=== PATIENT | male | born 1945 | race Caucasian/White ===

== ENCOUNTER 2016-05-27 14:35 | Inpatient (IN) | payer MEDICARE, MEDICAID ==
[~2016-05-27] VITALS: Ht 170.2 cm; Wt 55.1 kg
--- NOTE | ~2016-05-27 | CON ---
[place], [place] REPORT OF CONSULTATION NAME: RODRIGO VELA [facility] #: [id number] UNIT #: [id number] ROOM: 407 DOCTOR: LISSETTE WELLINGTON MD BIRTHDATE: [birth year] DOS: 05/28/2016 REASON FOR CONSULTATION: Elevated troponin. HISTORY OF PRESENT ILLNESS: The patient is a 70-year-old man who was not previously seen by [facility]. He has been followed by the line repairer tower of [facility], although the patient is unsure of his line repairer tower's name. He tells me that he had a history of a myocardial infarction in the distant past and had an angioplasty and stent done. He does not know which vessel was involved. He was well until about 4-5 years ago when he had another myocardial infarction. He states that he did have an irregular heartbeat and a defibrillator was placed. He does not believe that he had a second stent. 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 He was placed on amiodarone and his ICD was adjusted. Again, those records are not yet available to me. He was told that there was "nothing more to be done" and has been maintained on medical therapy. The patient was doing reasonably well until about 5 days ago when he developed chills, dyspnea, congestion, weakness and severe diarrhea. He thought he might have pneumonia and spent a lot of time in bed. Family says that he got out of bed for no more than an hour daily for about a week. His oral intake decreased, and his diarrhea increased. He became dehydrated and fell striking his head, so he was brought to the Emergency Room. He was rehydrated and a CT scan of his head showed no evidence for intracranial damage. The chest x-ray suggested the possibility of an interstitial infiltrate, and he was admitted. Since hospitalization, laboratory studies have shown an elevation in CPK with a peak of 810. The MB, however, was low. Troponin levels are mildly elevated at 0.040, 0.047 and 0.059. Because of this elevation, we were asked to assist in his assessment. Currently, the patient feels well. He is being rehydrated with IV fluids and states that his symptoms have improved. He denies any chest pain, palpitations or ICD discharges. PAST MEDICAL HISTORY: Includes; 1. Coronary artery disease. The patient had a remote heart attack with placement of a stent in the distant past. He had a more recent heart attack with a placement of a defibrillator about 4-5 years ago. 2. Multiple ICD discharges approximately 4 years ago. The patient treated with amiodarone. 3. Long-term and ongoing cigarette abuse. 4. Obstructive lung disease. 5. Long-term and ongoing alcohol abuse. 6. Hyperlipidemia. MEDICATIONS: Prior to admission, amiodarone 200 mg daily, aspirin 81 mg per day, carvedilol 25 mg b.i.d., clopidogrel 75 mg daily, Vibramycin 100 mg b.i.d., folic acid daily, lisinopril 5 mg per day, Zantac daily, rosuvastatin 20 mg daily, sertraline 50 mg daily, and temazepam 30 mg at bedtime. [place], [place] REPORT OF CONSULTATION NAME: RODRIGO VELA UNIT #: [id number] ROOM: 407 DOCTOR: LISSETTE WELLINGTON MD BIRTHDATE: [birth year] ALLERGIES: The patient has no known drug allergies. FAMILY HISTORY: Both parents of heart disease in their 70s. REVIEW OF SYSTEMS: The patient denies diplopia or loss of vision. He has been weak. He has had diarrhea. He has had cough and congestion. He denies hemoptysis or hematemesis. He has had anorexia. He denies any chills or fevers. He denies any bleeding in his bowels or urine. He denies any peripheral edema, orthopnea or PND. He denies heat or cold intolerance. The remainder of the review of systems is negative except as noted above. SOCIAL HISTORY: The patient is an alcoholic and continues to smoke and drink daily. PHYSICAL EXAMINATION: GENERAL: The patient is an elderly white male who is awake, alert and oriented. VITAL SIGNS: Pulse is 64 and regular, blood pressure is 119/59. He is afebrile. He weighs 54.9 kilograms with a body mass index of 19. HEENT: Normocephalic, atraumatic. Extraocular muscles are intact. Sclerae are clear. Pupils are round and reactive to light. The oral mucosa is moist. Tongue is midline. NECK: Supple. He has no jugular distention. Carotids are full without bruits. He has no neck or supraclavicular masses. No thyromegaly. LUNGS: Respirations are unlabored. His chest has decreased breath sounds at the bases, but no wheezes or rales. He has no presacral edema or chest wall tenderness. CARDIOVASCULAR: His heart has a regular rhythm. He has a fourth heart sound, but no third heart sound or obvious murmur. The PMI is not displaced. He has no precordial heave, lift or thrill. ABDOMEN: Soft and normoactive without masses, organomegaly, bruits or tenderness. EXTREMITIES: Showed no edema. Peripheral pulses are absent in his feet bilaterally. LABORATORY DATA: Electrocardiogram is not currently available. His monitor shows that he is in sinus rhythm. Hemoglobin is 11.1, hematocrit 33.6, white count 7600, platelet count 85,000. INR is 0.9. Sodium 137, potassium 3.2, chloride 105, CO2 of 21, BUN 17, creatinine 1.14. Peak CPK 810, but peak MB is only 3.1. Troponin levels are mildly elevated at 0.040, 0.047 and 0.059. ProBNP is 1145. IMPRESSION: 1. Presentation with possible viral illness. The patient's presentation was marked by dehydration, anorexia, diarrhea, and hypotension. In the setting of coronary artery disease, this might be enough to allow for a slight amount of myocardial injury an elevation in troponin without an acute coronary syndrome. 2. History of coronary artery disease status post at least 2 myocardial infarctions in the past, records are not yet available. 3. History of apparent ventricular tachycardia. The patient does have an ICD [place], [place] REPORT OF CONSULTATION NAME: RODRIGO VELA UNIT #: [id number] ROOM: 407 DOCTOR: LISSETTE WELLINGTON MD BIRTHDATE: [address], which he states has been there for about 4 years. 4. 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 The patient is on amiodarone for this. 5. Long-term and ongoing tobacco abuse. 6. Long-term and ongoing alcohol abuse. 7. Hyperlipidemia. PLAN: We will obtain an echocardiogram to reassess the patient's left ventricular function and wall motion. Records will be obtained from his line repairer tower in [place] to help determine how aggressively we should approach his further evaluation. For now, he will be treated with aspirin, Plavix, MIR inhibitors and amiodarone. I also did add a low dose of beta lucio to his regimen. Further recommendations depend upon his course in the hospital, echocardiographic results, and review of history. I thank the hospitalist physicians for asking our advice regarding his care. LISSETTE WELLINGTON MD CM:CONSTR:REPORT OF CONSULTATION [id number] 05/29/16 [id number] interface
[~2016-05-27 14:35] MED LIST: 'CYPROHEPTADINE4 MG PO; ASPI-COR81 M1 PO; BISACODYL LAXATI5 MG PO; COREG25 MG PO; COREG3.125 MG PO; FOLIC ACID1 MG PO; LISINOPRIL5 MG PO; PLAVIX75 MG PO; ULTRAM50 MG PO; ZANTAC150 MG PO
[2016-05-27 14:43] VITALS: BP 122/56
[2016-05-27] MEDS ORDERED: AMIODARONE HCL200 MG PO (14:43)
[2016-05-27] MEDS ORDERED: ASPIRIN81 M1 PO (14:44)
[2016-05-27] MEDS ORDERED: TEMAZEPAM30 MG PO (14:44)
[2016-05-27] MEDS ORDERED: ZOLOFT50 MG PO (14:45)
[2016-05-27] MEDS ORDERED: CRESTOR20 M1 PO (14:45)
[2016-05-27 15:39] LABS: BASO % 0.3 % (0.0-1.0); EOS % 0.3 % (1.0-4.0); HEMATOCRIT 38.5 % (42.0-52.0); HEMOGLOBIN 12.6 g/dl (14.0-18.0); LYMPH % 13.4 % (27.0-41.0); MEAN CELL VOLUME 92.1 fl (80.0-94.0); MEAN CORPUSCULAR HGB 30.1 pg (27.0-31.0); MEAN CORPUSCULAR HGB CONC 32.7 g/dl (33.0-37.0); MEAN PLATELET VOLUME 13.1 fl (9.6-12.3); MONO # 0.7 10*3/uL (0.1-1.0); MONO % 9.1 % (3.0-9.0); NEUT # 5.6 10*3/uL (2.3-7.9); NEUT % 76.5 % (47.0-73.0); PLATELET COUNT AUTOMATED 105 10*3/uL (130-400); RED BLOOD COUNT 4.18 10*6/uL (4.50-5.90); RED CELL DISTRI WIDTH 14.7 % (0-14.5); WHITE BLOOD COUNT 7.3 10*3/uL (4.8-10.8)
[2016-05-27 15:57] LABS: ALKALINE PHOSPHATASE 107 U/L (45-117); BILIRUBIN, TOTAL 0.4 mg/dl (0.2-1.0); BUN 22 mg/dl (7-24); CARBON DIOXIDE 21 mmol/L (21-32); CHLORIDE 104 mmol/L (98-107); EST GLOM FILT AFRICAN AMERICAN > 60 ml/min; GLUCOSE 76 mg/dL (65-99); POTASSIUM 3.9 mmol/L (3.5-5.1); SGOT/AST 49 IU/L (3-35); SGPT/ALT 24 U/L (12-78); SODIUM 136 mmol/L (136-145); TOTAL PROTEIN 7.8 gm/dL (6.4-8.2)
[2016-05-27 16:00] VITALS: BP 119/64
[2016-05-27 16:46] LABS: TROPONIN I < 0.015 ng/ml (<0.045)
[2016-05-27 16:50] LABS: BILIRUBIN NEGATIVE (NEGATIVE); BLOOD 2+ (NEGATIVE); CLARITY SL CLOUDY (CLEAR); COLOR YELLOW (YELLOW); GLUCOSE NEGATIVE (NEGATIVE); KETONE NEGATIVE (NEGATIVE); LEUKO ESTERASE NEGATIVE (NEGATIVE); NITRITE NEGATIVE (NEGATIVE); PROTEIN 2+ (NEGATIVE); SPECIFIC GRAVITY >= 1.030 (1.005-1.030); UROBILINOGEN 0.2 E.U./dl (0.2-1.0)
[2016-05-27 17:00] LABS: MUCOUS 1+; URINE REFLEX COMMENT YES (NO)
[2016-05-27] MEDS ORDERED: VIBRAMYCIN100 MG PO (17:37)
[2016-05-27 22:15] VITALS: BP 81/48
[2016-05-27 22:55] VITALS: BP 81/56
[2016-05-27 23:09] LABS: ALBUMIN 2.8 gm/dl (3.1-4.5); ALKALINE PHOSPHATASE 96 U/L (45-117); BILIRUBIN, TOTAL 0.6 mg/dl (0.2-1.0); BUN 21 mg/dl (7-24); CARBON DIOXIDE 21 mmol/L (21-32); CHLORIDE 104 mmol/L (98-107); EST GLOM FILT AFRICAN AMERICAN > 60 ml/min; GLUCOSE 92 mg/dL (65-99); MAGNESIUM 2.2 mg/dL (1.5-2.1); POTASSIUM 3.5 mmol/L (3.5-5.1); SGOT/AST 45 IU/L (3-35); SGPT/ALT 22 U/L (12-78); SODIUM 136 mmol/L (136-145); TOTAL PROTEIN 7.3 gm/dL (6.4-8.2)
[2016-05-28] VITALS: BP 92/60
[2016-05-28 00:42] LABS: CKMB 1.7 ng/ml (0.5-3.6); TROPONIN I 0.04 ng/ml (<0.045)
[2016-05-28 06:46] LABS: HEMATOCRIT 33.6 % (42.0-52.0); HEMOGLOBIN 11.1 g/dl (14.0-18.0); MEAN CELL VOLUME 89.8 fl (80.0-94.0); MEAN CORPUSCULAR HGB 29.7 pg (27.0-31.0); MEAN PLATELET VOLUME 12.8 fl (9.6-12.3); PLATELET COUNT AUTOMATED 85 10*3/uL (130-400); RED BLOOD COUNT 3.74 10*6/uL (4.50-5.90); RED CELL DISTRI WIDTH 14.7 % (0-14.5); WHITE BLOOD COUNT 7.6 10*3/uL (4.8-10.8)
[2016-05-28 07:13] LABS: TROPONIN I 0.047 ng/ml (<0.045)
[2016-05-28 07:22] LABS: INTERNATIONAL NORM RATIO 0.9 (2.0-3.5)
[2016-05-28 07:29] LABS: BUN 17 mg/dl (7-24); CARBON DIOXIDE 21 mmol/L (21-32); CHLORIDE 105 mmol/L (98-107); CHOLESTEROL 77 mg/dL (<200); EST GLOM FILT AFRICAN AMERICAN > 60 ml/min; GLUCOSE 87 mg/dL (65-99); HDL CHOLESTEROL 30 mg/dl (40-60); LDL CHOLESTEROL 26 mg/dL (9-159); POTASSIUM 3.2 mmol/L (3.5-5.1); SODIUM 137 mmol/L (136-145); TRIGLYCERIDES 107 mg/dl (<150); VLDL CHOLESTEROL 21 mg/dL (6-40)
[2016-05-28 07:38] LABS: FREE T4 1.41 ng/dl (0.76-1.46); THYROID STIM HORMONE (HS) 0.683 uIU/ml (0.358-4.75)
[2016-05-28 07:40] LABS: VITAMIN D, 25-HYDROXY 8.3 ng/mL (30-100)
[2016-05-28 07:41] LABS: FOLIC ACID > 24.00 ng/mL (>5.38)
[2016-05-28 07:54] LABS: LYMPHOCYTE # 0.9 10*3/uL (1.3-4.4); METAMYELOCYTES 1 % (0-0); MONOCYTE # 0.8 10*3/uL (0.1-1.0); NEUTROPHIL # 5.9 10*3/uL (2.3-7.9); NEUTROPHILS 77 % (47-73); PLATELET SUFFICIENCY LOW (NORMAL); TOTAL CELLS COUNTED 100 #CELLS; TOXIC GRANULATION MODERATE
[2016-05-28 08:00] VITALS: BP 95/53
[2016-05-28 12:00] VITALS: BP 119/59
[2016-05-28 12:31] LABS: CKMB 3.1 ng/ml (0.5-3.6)
[2016-05-28 12:41] LABS: TROPONIN I 0.059 ng/ml (<0.045)
[2016-05-28 16:00] VITALS: BP 93/57
[2016-05-28 20:00] VITALS: BP 91/49
[2016-05-29] VITALS: BP 101/55
[2016-05-29 06:39] LABS: HEMOGLOBIN 11.2 g/dl (14.0-18.0); MEAN CELL VOLUME 90.7 fl (80.0-94.0); MEAN CORPUSCULAR HGB 29.9 pg (27.0-31.0); MEAN CORPUSCULAR HGB CONC 32.9 g/dl (33.0-37.0); MEAN PLATELET VOLUME 12.9 fl (9.6-12.3); PLATELET COUNT AUTOMATED 77 10*3/uL (130-400); RED BLOOD COUNT 3.75 10*6/uL (4.50-5.90); RED CELL DISTRI WIDTH 14.6 % (0-14.5); WHITE BLOOD COUNT 9.1 10*3/uL (4.8-10.8)
[2016-05-29 07:09] LABS: BASOPHIL # 0.1 10*3/uL (0-0.1); BASOPHILS 1 % (0-1); BUN 11 mg/dl (7-24); BURR CELLS FEW; CARBON DIOXIDE 19 mmol/L (21-32); CHLORIDE 110 mmol/L (98-107); EST GLOM FILT AFRICAN AMERICAN > 60 ml/min; GLUCOSE 114 mg/dL (65-99); LYMPHOCYTE # 0.4 10*3/uL (1.3-4.4); MAGNESIUM 2.2 mg/dL (1.5-2.1); MONOCYTE # 0.3 10*3/uL (0.1-1.0); NEUTROPHIL # 8.4 10*3/uL (2.3-7.9); NEUTROPHILS 92 % (47-73); PHOSPHOROUS 2.2 mg/dL (2.5-4.9); PLATELET SUFFICIENCY LOW (NORMAL); POTASSIUM 4.1 mmol/L (3.5-5.1); SODIUM 140 mmol/L (136-145); TOTAL CELLS COUNTED 100 #CELLS
[2016-05-29 08:00] VITALS: BP 119/64
[2016-05-29] MEDS ORDERED: PREDNISONE10 MG PO (09:07)
[2016-05-29] MEDS ORDERED: DOXYCYCLINE100 M3 PO (09:07)
== END 2016-05-29 09:50 | disposition home or self-care (01) | DRG 314 ==
LOC: ED 14:35 → 4E 22:28 → EDHOLD 22:28 → 4E 22:37
PROVIDERS: Emergency Medicine; Family Medicine Sports Medicine; Internal Medicine
DX: I95.9 Hypotension, unspecified (principal); E43 Unspecified severe protein-calorie malnutrition; I50.9 Heart failure, unspecified; D69.6 Thrombocytopenia, unspecified; J44.0 Chronic obstructive pulmonary disease with (acute) lower respiratory infection; D64.9 Anemia, unspecified; E83.41 Hypermagnesemia; Z68.1 Body mass index [BMI] 19.9 or less, adult; K52.9 Noninfective gastroenteritis and colitis, unspecified; J20.9 Acute bronchitis, unspecified; E86.0 Dehydration; I25.10 Atherosclerotic heart disease of native coronary artery without angina pectoris; E78.5 Hyperlipidemia, unspecified; F10.20 Alcohol dependence, uncomplicated; I25.2 Old myocardial infarction; E87.6 Hypokalemia; Z95.5 Presence of coronary angioplasty implant and graft; Z95.810 Presence of automatic (implantable) cardiac defibrillator

== ENCOUNTER 2017-03-05 17:59 | Emergency (ER) | payer MEDICARE, MEDICAID ==
[~2017-03-05] VITALS: Ht 170.1 cm; Wt 54.4 kg
[~2017-03-05 17:59] MED LIST changes: +AMIODARONE HCL200 MG PO; +ASPIRIN81 M1 PO; +CRESTOR20 M1 PO; +DOXYCYCLINE100 M3 PO; +PREDNISONE10 MG PO; +TEMAZEPAM30 MG PO; +VIBRAMYCIN100 MG PO; +ZOLOFT50 MG PO
[2017-03-05 18:57] LABS: BASO # 0.1 10*3/uL (0.0-0.1); BASO % 0.5 % (0.0-1.0); EOS # 0.1 10*3/uL (0.0-0.4); EOS % 0.5 % (1.0-4.0); HEMATOCRIT 30.1 % (42.0-52.0); HEMOGLOBIN 9.4 g/dl (14.0-18.0); LYMPH # 1.2 10*3/uL (1.3-4.4); LYMPH % 11.4 % (27.0-41.0); MEAN CELL VOLUME 82.7 fl (80.0-94.0); MEAN CORPUSCULAR HGB 25.8 pg (27.0-31.0); MEAN CORPUSCULAR HGB CONC 31.2 g/dl (33.0-37.0); MEAN PLATELET VOLUME 13.2 fl (9.6-12.3); MONO # 0.7 10*3/uL (0.1-1.0); MONO % 6.5 % (3.0-9.0); NEUT # 8.4 10*3/uL (2.3-7.9); NEUT % 80.7 % (47.0-73.0); PLATELET COUNT AUTOMATED 159 10*3/uL (130-400); RED BLOOD COUNT 3.64 10*6/uL (4.50-5.90); RED CELL DISTRI WIDTH 16.8 % (0-14.5); WHITE BLOOD COUNT 10.4 10*3/uL (4.8-10.8)
[2017-03-05 19:16] LABS: ALBUMIN 1.9 gm/dl (3.1-4.5); CREATININE 1.53 mg/dL (0.70-1.30); TOTAL PROTEIN 6.1 gm/dL (6.4-8.2)
== END 2017-03-05 20:33 | disposition left against medical advice (07) ==
LOC: ED 17:59
PROVIDERS: Nurse Practitioner Family
DX: E86.0 Dehydration (principal); R94.5 Abnormal results of liver function studies; F17.200 Nicotine dependence, unspecified, uncomplicated; Z95.0 Presence of cardiac pacemaker; Z95.5 Presence of coronary angioplasty implant and graft; Z79.82 Long term (current) use of aspirin; Z79.899 Other long term (current) drug therapy